=== PATIENT | female | born 1970 | race Caucasian/White ===

== ENCOUNTER → 2023-12-11 08:08 | Outpatient (REF) | payer OTHER, SELFPAY | LOC: HWRAD 08:08 | PROVIDERS: ATTENDING PHYSICIAN Family Medicine | DX: E04.1 Nontoxic single thyroid nodule (principal); I10 Essential (primary) hypertension; K76.9 Liver disease, unspecified; Z78.0 Asymptomatic menopausal state | CPT/HCPCS: 76536; 76700; 77080 ==

== ENCOUNTER → 2024-05-02 09:25 | Outpatient (REF) | payer OTHER, SELFPAY | LOC: HWRAD 09:25 | PROVIDERS: ATTENDING PHYSICIAN Family Medicine | DX: K76.89 Other specified diseases of liver (principal) | CPT/HCPCS: 76700 ==

== ENCOUNTER → 2024-06-27 14:38 | Outpatient (REF) | payer OTHER, SELFPAY | LOC: HWRCS 14:38 | PROVIDERS: ATTENDING PHYSICIAN Internal Medicine Cardiovascular Disease; FAMILY PHYSICIAN Family Medicine | DX: R06.09 Other forms of dyspnea (principal) | CPT/HCPCS: 93306 ==

== ENCOUNTER → 2024-07-04 09:09 | Outpatient (REF) | payer OTHER, SELFPAY | LOC: RCS 09:09 | PROVIDERS: ATTENDING PHYSICIAN Internal Medicine Cardiovascular Disease; FAMILY PHYSICIAN Family Medicine | DX: R06.09 Other forms of dyspnea (principal) | CPT/HCPCS: 93017 ==

== ENCOUNTER 2024-09-09 21:49 | Emergency (ER) | payer OTHER, SELFPAY ==
[2024-09-09 22:17] VITALS: BP 139/96
[2024-09-09 22:41] LABS: % Basophils 0.4 % (0-2); % Eosinophils 0.7 % (0-6); % Immature Granulocytes 0.4 % (0-0.5); % Lymphocytes 19.3 % (20.5-51.1); % Monocytes 8.1 % (1.7-9.3); % Neutrophils 71.1 % (42.2-75.2); Absolute Basophils 0.1 10^3/uL (0-0.2); Absolute Eosinophils 0.1 10^3/uL (0-0.7); Absolute Immature Granulocytes 0.1 10^3/uL (0-0.05); Absolute Lymphocytes 2.6 10^3/uL (1.2-3.4); Absolute Monocytes 1.1 10^3/uL (0.1-0.6); Absolute Neutrophils 9.4 10^3/uL (1.4-6.5); Hematocrit 42.6 % (37.0-47.0); Hemoglobin 14.7 g/dL (12.0-16.0); Mean Corp Hgb Conc. 34.5 g/dL (33.0-37.0); Mean Corpuscular Hgb 30.5 pg (27.0-31.0); Mean Corpuscular Volume 88.4 fL (81.0-99.0); Mean Platelet Volume 9.7 fL (7.4-10.4); Nucleated Red Blood Cells % 0 %; Platelet Count 264 10^3/uL (130-400); Red Blood Cell Count 4.82 10^6/uL (4.20-5.40); Red Cell Dist. Width 12.6 % (11.5-14.5); White Blood Cell Count 13.2 10^3/uL (4.8-10.8)
[2024-09-09 22:45] LABS: Urine Albumin 1+ (Neg - Trace); Urine Bilirubin Negative (Negative); Urine Character Clear (Clear); Urine Color Yellow; Urine Glucose Negative (Negative); Urine Ketone Negative (Negative); Urine Leukocyte Negative (Negative); Urine Nitrite Negative (Negative); Urine Occult Blood Negative (Negative); Urine Urobilinogen Negative (Neg - 1+)
[2024-09-09 22:55] LABS: Urine Red Blood Cell None Seen /HPF (0-2); Urine White Cell 0-2 /HPF (0-5)
[2024-09-09 22:59] LABS: ALT (SGPT) 27 U/L (0-35); AST (SGOT) 27 U/L (14-36); Albumin 4.9 g/dl (3.5-5.0); Alkaline Phosphatase 47 U/L (38-126); Blood Urea Nitrogen 22 mg/dl (7-17); Calcium 10.3 mg/dl (8.4-10.2); Carbon Dioxide 28 mmol/L (22-30); Chloride 107 mmol/L (98-107); Glucose 90 mg/dl (70-99); Lipase 157 U/L (23-300); Potassium 4.5 mmol/L (3.5-5.1); Sodium 142 mmol/L (135-145); Total Bilirubin 0.8 mg/dl (0.2-1.3); eGFR > 60.00
[2024-09-10 00:05] VITALS: BP 123/94
[2024-09-10 00:37] VITALS: BMI 29.2
--- NOTE | 2024-09-10 01:06 | ED.GENMED ---
History of Present Illness
General
Chief Complaint: Abdominal Pain
Source: patient
Time Seen by Provider: 09/10/24 00:31
History of Present Illness
History of Present Illness:
Note:
CHIEF COMPLAINT(S)
Abdominal pain in the left lower quadrant.
HISTORY OF PRESENT ILLNESS
The patient is a 53-year-old female presenting with abdominal pain located in the left lower quadrant. The pain began Thursday evening into morning, constant dull aching sensation, nonradiating, somewhat improved with ibuprofen earlier
this evening and is currently not as severe as previously experienced with last episode of diverticulitis. Patient's last episode occurred a few months ago, was told by her GI doctor at [facility] if she is to have recurring
symptoms she should come back to the ER to be evaluated. The patient denies experiencing fever, nausea, vomiting, and reports no urinary symptoms.
PAST SURGICAL HISTORY
In 2001, the patient had surgery to remove a very large fibroid.
SOCIAL HISTORY
The patient reports occasional alcohol use and purposeful weight loss of 33 pounds since December through nutritional changes.
MEDICATIONS
The patient currently takes atorvastatin for cholesterol and spironolactone for acne.
Past History
Past History
ED Past Medical History: Other (Diverticulitis)
ED Past Surgical History: Gynecological
Social History
Tobacco: Non-smoker
Alcohol: Occasional
Drug: None
Personal:
Living: with family
Employment: Employed
Review of Systems
Review of Systems
All Other Systems: ROS reviewed and negative except as documented in HPI and ROS
Phy Exam
Physical Exam
Physical Exam:
GENERAL: Alert , in no apparent distress but does appear mildly uncomfortable
EYE: clear conjunctiva b/l
HEAD: NCAT
ENT: o/p clr, mmm.
ABDOMEN: Soft, left lower quadrant and suprapubic tenderness, no r/g, no cvat, negative Chun sign, no tenderness at McBurney's point
NEUROLOGICAL: Alert and oriented
SKIN: Warm and dry, skin intact.
MUSCULOSKELETAL: No edema, well perfused.
PSYCH: Normal and appropriate interaction.
Scores
Heart Failure Risk
Heart Failure Risk Score: Not Applicable
Heart Score for Chest Pain Patients
STEMI patient?: Not applicable
Withdrawal Assessment of Alcohol
Withdrawal Assessment Completed?: Not applicable
Course
Orders/Labs/Results
Orders:
Orders
09/09/24 22:21
IV Insert/Care/Rem.- Treatment PRN
09/09/24 22:28
Complete Blood Count/With Diff Urgent
Comprehensive Metabolic Panel Urgent
Lipase Urgent
09/09/24 22:29
Urinalysis Reflex To Culture Urgent
Date Specimen was Collected: 09/09/24
Time Specimen was Collected: 22:21
Urine Microscopic Reflex Cult Urgent
09/10/24 00:31
CT Abd/pelvis W Iv Cont Urgent
Comment:
Reason For Exam: LLQ pain, hx diverticulitis
09/10/24 01:12
Ketorolac [Toradol] 15 mg IV NOW STA
09/10/24 01:13
0.9% Sodium Chloride 1000 ml [Nss] 1,000 ml IV BOLUS
Amoxicillin 875 mg/Clav 125 mg [Augmentin 875 mg/125 mg] 1 tablet PO NOW STA
Abnormal Lab Results
09/09/24 09/09/24
22:28 22:29
WBC 13.2 H 10^3/uL
(4.8-10.8)
Abs Immat Gran (auto) 0.1 H 10^3/uL
(0-0.05)
Absolute Neuts (auto) 9.4 H 10^3/uL
(1.4-6.5)
Absolute Monos (auto) 1.1 H 10^3/uL
(0.1-0.6)
Lymphocytes % 19.3 L %
(20.5-51.1)
BUN 22 H mg/dl
(7-17)
Calcium 10.3 H mg/dl
(8.4-10.2)
Urine Albumin (Reflex) 1+ A
(Neg - Trace)
09/09/24 22:28
09/09/24 22:28
Vital Signs
Initial and Last Documented VS:
Initial Vital Signs
Temp Pulse Resp BP Pulse Ox
97.5 F 85 16 139/96 98
09/09/24 22:17 09/09/24 22:17 09/09/24 22:17 09/09/24 22:17 09/09/24 22:17
Last Documented Vital Signs
Temp Pulse Resp BP Pulse Ox
97.5 F 85 16 123/94 99
09/09/24 22:17 09/09/24 22:17 09/09/24 22:17 09/10/24 00:05 09/10/24 01:09
MDM/Problems Addressed
Differential Diagnosis Includes:
The Differential Diagnosis includes, in no particular order and is not limited to:
1. Diverticulitis
2. Irritable bowel syndrome
3. Inflammatory bowel disease
4. Colorectal cancer
5. Gastroenteritis
6. Appendicitis
7. Ovarian cyst
8. Pelvic inflammatory disease
9. Urinary tract infection
10. Kidney stone
MDM/Problems Addressed:
Patient presented to the ER for evaluation of 2 days of left lower quadrant abdominal pain. Feels similar to previous episodes of diverticulitis although notes this does not seem to be as severe. Labs were initiated on arrival which do show a
leukocytosis of 13,000. CT scan ordered. Await CT scan results to confirm suspicion of diverticulitis. Initiate antibiotic therapy if diverticulitis is confirmed. Administer the first dose of antibiotics before discharge; the patient can complete
the course at home. 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 Suggest a low-residue diet, emphasizing liquid-based and easily digestible foods. Provide necessary documentation, such as blood work results, to the patient;
official imaging reports to be obtained from the medical records subsequently.
*Radiology
Radiology exam reviewed: radiology read reviewed
*Pulse Oximetry
SaO2: 99
Oxygen Mode of Delivery: Room air
*Critical Care Note
Total Time (30-74mins, 75-104mins- exclusive of procedures): Not Applicable
Patient Management
Escalation/DeEscalation of care consider admission/obs:
ET scan shows uncomplicated sigmoid diverticulitis. Will treat with Augmentin. Prior to discharge patient was requesting something for pain. 15 mg of Toradol ordered. She will follow-up with her GI physician as an outpatient. Aware of return
precautions to the ER. Otherwise stable for discharge home.
ED Attending Note
-
Portions of this chart may have been created with voice recognition software.� Occasional wrong word or��sound alike� substitutions may have occurred due to the inherent limitations of voice recognition software.
Discharge Plan
Departure
Patient Disposition: Home (Routine Discharge)
Date of Disposition: 09/10/24
Time of Disposition: 01:13
Patient with high blood pressure during this ER visit?: No
Discharge Problem:
Diverticulitis of sigmoid colon
Instructions: Diverticulitis (DC)
Prescriptions:
New
amoxicillin-pot clavulanate 875-125 mg tablet
1 tab PO BID Qty: 19 0RF
Referrals:
Yoel Sanders DO [Family Provider, Family Practice]
Interventions
Interventions:
*Risk Screen - Suicide Last Done: 09/09/24 22:17
*General Assessment Last Done: 09/10/24 00:38
*Neglect/Abuse Screening Last Done: 09/09/24 22:17
*ED- Fall Risk Assessment Last Done: 09/10/24 00:38
*ED COVID-19 Vaccine History Last Done: 09/10/24 00:38
*Nursing Disposition Last Done: 09/10/24 02:08
[facility] Assessment Last Done: 09/10/24 00:38
Discharge Date and Time
Discharge Date/Time: 09/10/24 02:16
Print Language: GHANAIAN
[2024-09-10] MEDS: TORADOL 15 MG IV (01:17)
[2024-09-10] MEDS: AUGMENTIN 875 MG/125 MG 1 TABLET PO (01:19)
[2024-09-10] MEDS: NSS 1000 IV (01:19)
== END 2024-09-10 02:16 | disposition home or self-care (01) ==
LOC: EMR 21:49
PROVIDERS: Emergency Medicine; EMERGENCY PHYSICIAN Emergency Medicine; FAMILY PHYSICIAN Family Medicine
DX: K57.32 Diverticulitis of large intestine without perforation or abscess without bleeding (principal)
CPT/HCPCS: 99285; 96374; 96361; 74177; 80053; 81003; 81015; 83690; 85025; Q9967